=== PATIENT | female | born 1985 | race American Indian/Alaskan Native ===

== ENCOUNTER 2016-10-02 12:46 | Outpatient (CLI) | payer MEDICAID ==
--- NOTE | 2016-10-02 13:59 | Ultrasound Report ---
Thyroid sonogram: History: Hyperthyroidism. Findings: Right lobe measures 5.1 x 1.3 x 2.2 cm. Uniform echogenicity with normal color flow. No mass. Left lobe measures 4.7 x 1.5 x 2 cm. Uniform echogenicity with normal color flow. No mass. The isthmus measures 0.3 cm with uniform echogenicity and normal color flow. Impression: No cystic or solid mass identified.
== END 2016-10-02 12:47 | disposition home or self-care (01) ==
LOC: US 12:46
PROVIDERS: ATTEND Family Medicine
DX: E05.80 Other thyrotoxicosis without thyrotoxic crisis or storm (principal)
CPT/HCPCS: 76536